=== PATIENT | female | born 2005 | race Two or more races ===

== ENCOUNTER → 2023-02-13 | Emergency (ER) | payer SELFPAY ==
[~2023-02-13] VITALS: Ht 157.5 cm; Wt 77.2 kg
[2023-02-13 22:19] VITALS: BP 134/76; PULSE 96; RESP 17; O2SAT 99
== END | disposition left against medical advice (07) ==
LOC: EDBD 22:12 → ER 22:12
DX: Z04.1 Encounter for examination and observation following transport accident (principal); Z53.21 Procedure and treatment not carried out due to patient leaving prior to being seen by health care provider